=== PATIENT | male | born 1955 | race African-American/Black ===

== ENCOUNTER 2023-10-31 10:48 | Emergency (ER) | payer MEDICARE, OTHER ==
[~2023-10-31] VITALS: Ht 180.3 cm; Wt 86.2 kg
[2023-10-31 11:00] VITALS: O2SAT 98
[2023-10-31] MEDS: KETOROLAC 30MG/ML VIAL IM ONE (12:28)
[2023-10-31] MEDS ORDERED: IBUP-2028 MT (12:43)
[2023-10-31] MEDS ORDERED: ACET-2708 MT (12:43)
[2023-10-31 13:02] VITALS: BP 148/92; PULSE 91; RESP 16; TEMP 98
== END 2023-10-31 13:01 | disposition home or self-care (01) ==
LOC: ER 12:03
DX: M06.9 Rheumatoid arthritis, unspecified (principal); M79.89 Other specified soft tissue disorders; E11.9 Type 2 diabetes mellitus without complications; I10 Essential (primary) hypertension; E78.5 Hyperlipidemia, unspecified; Z88.0 Allergy status to penicillin
CPT/HCPCS: 99283; 96372; J1885